=== PATIENT | female | born 1950 | race Two or more races ===

== ENCOUNTER 2018-04-23 20:33 | Emergency (ER) | payer OTHER ==
[~2018-04-23] VITALS: Ht 152.4 cm; Wt 66.7 kg
[2018-04-23] MEDS ORDERED: LIPITOR40 MG (20:47)
[2018-04-23] MEDS ORDERED: SYNTHROID50 MCG (20:47)
[2018-04-23] MEDS ORDERED: ZETIA10 MG (20:47)
== END 2018-04-23 22:24 | disposition home or self-care (01) ==
LOC: ER 20:33
DX: S42.291A Other displaced fracture of upper end of right humerus, initial encounter for closed fracture (principal); S42.251A Displaced fracture of greater tuberosity of right humerus, initial encounter for closed fracture; W10.8XXA Fall (on) (from) other stairs and steps, initial encounter; Y93.89 Activity, other specified; Y92.018 Other place in single-family (private) house as the place of occurrence of the external cause; Y99.8 Other external cause status

== ENCOUNTER → 2019-03-26 | Outpatient (CLI) | payer OTHER ==
[~2019-03-26] MED LIST: LIPITOR40 MG; SYNTHROID50 MCG; ZETIA10 MG
== END | disposition home or self-care (01) ==
LOC: SONOGRAMA 08:15
DX: R59.0 Localized enlarged lymph nodes (principal)

== ENCOUNTER 2019-03-31 07:08 | Outpatient (CLI) | payer OTHER | END 2019-03-31 07:12 | disposition home or self-care (01) | LOC: LAB 07:08 | DX: E21.3 Hyperparathyroidism, unspecified (principal); E88.89 Other specified metabolic disorders; E55.9 Vitamin D deficiency, unspecified; M85.88 Other specified disorders of bone density and structure, other site; M81.8 Other osteoporosis without current pathological fracture; E56.1 Deficiency of vitamin K; D68.8 Other specified coagulation defects; M06.4 Inflammatory polyarthropathy ==

== ENCOUNTER → 2019-04-02 | Outpatient (CLI) | payer OTHER | END | disposition home or self-care (01) | LOC: NUCLEAR 09:00 | DX: S42.221K 2-part displaced fracture of surgical neck of right humerus, subsequent encounter for fracture with nonunion (principal); D49.2 Neoplasm of unspecified behavior of bone, soft tissue, and skin | CPT/HCPCS: 78315; A9503 ==